=== PATIENT | male | born 1945 | race Caucasian/White ===

== ENCOUNTER 2016-05-19 11:08 | Emergency (ER) | payer OTHER, MEDICAID ==
[2016-05-19] MEDS ORDERED: IPRATROPIUM/ALBUTEROL 3 ML DEYVIAL ONE (11:23)
[2016-05-19] MEDS ORDERED: methylPREDNISolone SOD SUCC 125 MG/2 ML VIAL ONE (11:24)
[2016-05-19] MEDS ORDERED: methylPREDNISolone SOD SUCC 125 MG/2 ML VIAL IVP ONE (11:32)
[2016-05-19] MEDS ORDERED: NS 500 ML IV ONE (11:32)
[2016-05-19] MEDS ORDERED: RANITIDINE 50 MG/2 ML VIAL IV ONE (11:32)
[2016-05-19] MEDS ORDERED: IPRATROPIUM/ALBUTEROL 3 ML DEYVIAL IH ONE (11:34)
--- NOTE | 2016-05-19 11:56 | EDPHY ---
H & P Time Seen by Provider: 05/19/16 11:26 HPI/ROS: CHIEF COMPLAINT: " I think I have an allergic reaction" HISTORY OF PRESENT ILLNESS: Patient is a 70-year-old male who presents to the emergency department with diffuse rash and shortness of breath. The patient states that he developed diarrhea over the course of the night. He had mild abdominal cramping. He went to the dentist this morning to obtain his bridge. He did place is bridge with no difficulty. He had no medications or other procedures at the dentist's office. Upon returning home he felt his face become warm. He noticed a rash around his face and body. He has mild shortness of breath. No chest pain. REVIEW OF SYSTEMS: My complete review of systems is negative except as mentioned in the HPI. Past Medical/Surgical History: Includes gout, hypertension, diverticulitis Smoking Status: Former smoker Physical Exam: 134/86, 129, 14, 37.6, 97% on room air GENERAL: Well-appearing, in no acute distress, alert. HEENT: Eyes normal to inspection, normal pharynx, no signs of dehydration. NECK: No thyromegaly, no lymphadenopathy, supple. RESPIRATORY: Clear to auscultation bilaterally, no rales, rhonchi or wheezing. Of note, the nurse states he had mild wheezing on his arrival. She had treated him from triage with albuterol. CVS: Tachycardia with regular rhythm, no rubs, murmurs, or gallops. ABDOMEN: Soft, nontender, nondistended, no organomegaly. BACK: Normal to inspection, no CVA tenderness. SKIN: Normal color, warm, dry. No pallor. The patient has a diffuse erythematous rash. No petechiae. No papules. No significant hives. EXTREMITIES: No pedal edema, no calf tenderness, no Homans sign or cords, no joint swelling. NEURO/PSYCH: Alert and oriented x3, normal mood and affect, normal motor sensory exam. Constitutional: Initial Vital Signs Temperature (C) 37.6 C 05/19/16 11:11 Heart Rate 129 H 05/19/16 11:11 Respiratory Rate 14 05/19/16 11:11 Blood Pressure 134/86 H 05/19/16 11:11 O2 Sat (%) 97 05/19/16 11:11 O2 Delivery Mode Room Air Allergies/Adverse Reactions: No Known Allergies Allergy (Unverified 10/26/10 14:27) Home Medications: Medication Instructions Recorded ALLOPURINOL [Allopurinol 300 mg] 300 mg PO DAILY 05/30/10 ATENOLOL [Atenolol 50 mg] 50 mg PO 05/30/10 Aspirin [Aspirin 81mg] 81 mg PO DAILY 05/30/10 Cyclobenzaprine [Flexeril] 10 mg PO TID 05/30/10 Doxazosin Mesylate [Cardura] 3 mg PO DAILY 05/30/10 FLUTICASONE PROPIONATE [Flovent 0 gm IH 03/23/11 Hfa] Famotidine [Pepcid] 20 mg PO BID #10 tab 03/05/13 diphenhydrAMINE [Benadryl 50 MG 50 mg PO Q4-6PRN PRN #20 cap 03/05/13 (*)] predniSONE [prednisone 20mg (RX)] 60 mg PO DAILY #10 tab 03/05/13 Ciprofloxacin [Cipro] 500 mg PO BID #14 tab 05/19/16 metroNIDAZOLE [Flagyl 500 mg (*)] 500 mg PO BID #14 tab 05/19/16 Medical Decision Making ED Course/Re-evaluation: In the emergency department I met the patient soon after his arrival. He was sitting comfortably in the bed. Patient was given Solu-Medrol 125 mg IV, Zantac , Benadryl 50 mg IV and an albuterol neb. Patient was given normal saline 500 mL IV for hydration 1225: I rechecked the patient. He had no respiratory distress. Clear airway. Patient complains of mild left lower quadrant tenderness. No rebound or guarding. Clear breath sounds bilaterally. Because of the patient's mildly elevated temperature tachycardia chest x-ray was ordered. Chest x-ray: No acute disease or infiltrate noted. 155: I rechecked the patient. His rash had improved. He had no shortness of breath or airway swelling. He was continuing to complain of left lower quadrant discomfort. He has a history of diverticulosis. Because of this his laboratory findings a CT was ordered. I rechecked the patient upon return from CT imaging. He states his symptoms have resolved. Abdomen is soft, nontender nondistended. We are awaiting CT results. CT of the abdomen and pelvis: Please refer the dictated report by . He states the patient has some noted acute inflammation. There is mild wall thickening with trace fluid. The patient appears to have symptoms consistent with enteritis. Patient may have early diverticulitis but no abscess. I discussed the results with the patient. I answered all his questions. He continued to feel better. Abdomen was soft, nontender nondistended. He will be given Cipro and Flagyl orally. I discussed this with Dr. Wall from the [facility]. He will arrange close follow-up on Sunday. Patient felt comfortable with the plan. He was given warnings prior to leaving. Differential Diagnosis: My differential includes but is not limited to allergic reaction, reaction to his dental bridge, anaphylaxis, small-bowel obstruction, adhesions, diverticulitis, diverticulosis, enteritis - Data Points Laboratory Results: Laboratory Results 05/19/16 12:40 05/19/16 12:40 05/19/16 05/19/16 12:40 12:40 WBC 14.13 10^3/uL H 10^3/uL (3.80-9.50) RBC 5.74 10^6/uL 10^6/uL (4.40-6.38) Hgb 18.4 g/dL H g/dL (13.7-17.5) Hct 55.2 % H % (40.0-51.0) MCV 96.2 fL fL (81.5-99.8) MCH 32.1 pg pg (27.9-34.1) MCHC 33.3 g/dL g/dL (32.4-36.7) RDW 14.3 % % (11.5-15.2) Plt Count 129 10^3/uL L 10^3/uL (150-400) MPV 10.6 fL fL (8.7-11.7) Neut % (Auto) 77.1 % H % (39.3-74.2) Lymph % (Auto) 17.2 % % (15.0-45.0) Meade % (Auto) 3.9 % L % (4.5-13.0) Eos % (Auto) 1.1 % % (0.6-7.6) Baso % (Auto) 0.3 % % (0.3-1.7) Nucleat RBC Rel Count 0.0 % % (0.0-0.2) Absolute Neuts (auto) 10.90 10^3/uL H 10^3/uL (1.70-6.50) Absolute Lymphs (auto) 2.43 10^3/uL 10^3/uL (1.00-3.00) Absolute Monos (auto) 0.55 10^3/uL 10^3/uL (0.30-0.80) Absolute Eos (auto) 0.15 10^3/uL 10^3/uL (0.03-0.40) Absolute Basos (auto) 0.04 10^3/uL 10^3/uL (0.02-0.10) Absolute Nucleated RBC 0.00 10^3/uL 10^3/uL (0-0.01) Immature Gran % 0.4 % % (0.0-1.1) Immature Gran # 0.06 10^3/uL 10^3/uL (0.00-0.10) Sodium 145 mEq/L H mEq/L (134-144) Potassium 4.0 mEq/L mEq/L (3.5-5.2) Chloride 112 mEq/L H mEq/L (97-110) Carbon Dioxide 17 mEq/l L mEq/l (22-31) Anion Gap 16 mEq/L mEq/L (8-16) BUN 30 mg/dL H mg/dL (7-23) Creatinine 1.3 mg/dL mg/dL (0.7-1.3) Estimated GFR 55 Glucose 148 mg/dL H mg/dL (70-100) Calcium 8.9 mg/dL mg/dL (8.5-10.4) Total Bilirubin 0.7 mg/dL mg/dL (0.1-1.4) Conjugated Bilirubin 0.6 mg/dL H mg/dL (0.0-0.5) Unconjugated Bilirubin 0.1 mg/dL mg/dL (0.0-1.1) AST 31 IU/L IU/L (17-59) ALT 31 IU/L IU/L (21-72) Alkaline Phosphatase 62 IU/L IU/L (38-126) Total Protein 7.6 g/dL g/dL (6.3-8.2) Albumin 4.3 g/dL g/dL (3.5-5.0) Lipase 160.0 IU/L IU/L (23-300) Medications Given: Discontinued Medications Albuterol/Ipratropium (Duoneb) 3 ml IH EDNOW ONE Stop: 05/19/16 11:35 Last Admin: 05/19/16 12:13 Dose: 3 ml Diphenhydramine HCl (Benadryl Injection) 50 mg IVP EDNOW ONE Stop: 05/19/16 11:33 Last Admin: 05/19/16 11:43 Dose: 50 mg Sodium Chloride (Ns) 500 mls @ 0 mls/hr IV EDNOW ONE PRN Reason: Wide Open Stop: 05/19/16 11:33 Last Admin: 05/19/16 12:14 Dose: 500 mls Sodium Chloride (Ns) 1,000 mls @ 0 mls/hr IV ONCE ONE PRN Reason: Wide Open Stop: 05/19/16 13:50 Last Admin: 05/19/16 13:55 Dose: 1,000 mls Methylprednisolone Sodium Succinate (Solu-Medrol) 125 mg IVP EDNOW ONE Stop: 05/19/16 11:33 Last Admin: 05/19/16 12:14 Dose: 125 mg Ranitidine HCl (Zantac) 50 mg IV EDNOW ONE Stop: 05/19/16 11:33 Last Admin: 05/19/16 12:15 Dose: 50 mg Departure - Departure Disposition: Home, Routine, Self-Care Clinical Impression: Enteritis Allergic reaction Qualifiers: Encounter type: initial encounter Qualified Code(s): T78.40XA - Allergy, unspecified, initial encounter Diarrhea Qualifiers: Diarrhea type: unspecified type Qualified Code(s): R19.7 - Diarrhea, unspecified Condition: Good Instructions: Diverticulitis (ED), Enteritis (ED) Additional Instructions: Take your antibiotics as directed. Return with increasing pain, vomiting, diarrhea, fever or any other concerns. Referrals: Vijaya Hernandez [Primary Care Provider] - As per Instructions Prescriptions: Ciprofloxacin [Cipro] 500 mg PO BID #14 tab metroNIDAZOLE [Flagyl 500 mg (*)] 500 mg PO BID #14 tab
[2016-05-19 12:53] LABS: % IMMATURE GRANULYOCYTES 0.4 % (0.0-1.1); ABSOLUTE IMMATURE GRANULOCYTES 0.06 10^3/uL (0.00-0.10); ADD DIFF? NO; ADD MORPH? NO; ADD SCAN? NO; ATYPICAL LYMPHOCYTE FLAG 0 (0-99); FRAGMENT RBC FLAG 0 (0-99); HEMATOCRIT 55.2 % (40.0-51.0); HEMOGLOBIN 18.4 g/dL (13.7-17.5); LEFT SHIFT FLG 0 (0-99); LIPEMIA HEMOLYSIS FLAG 80 (0-99); MEAN CELL HEMOGLOBIN 32.1 pg (27.9-34.1); MEAN CELL HEMOGLOBIN CONCENTR. 33.3 g/dL (32.4-36.7); MEAN CELL VOLUME 96.2 fL (81.5-99.8); MEAN PLATELET VOLUME 10.6 fL (8.7-11.7); PLATELET CLUMPS FLAG 0 (0-99); PLATELET COUNT 129 10^3/uL (150-400); RED BLOOD CELL COUNT 5.74 10^6/uL (4.40-6.38); RED CELL DISTRIBUTION WIDTH 14.3 % (11.5-15.2)
[2016-05-19 13:23] LABS: ALANINE AMINOTRANSFERASE 31 IU/L (21-72); ALBUMIN 4.3 g/dL (3.5-5.0); ALKALINE PHOSPHATASE 62 IU/L (38-126); ANION GAP 16 mEq/L (8-16); ASPARTATE AMINOTRANSFERASE 31 IU/L (17-59); BILIRUBIN,TOTAL 0.7 mg/dL (0.1-1.4); BILIRUBIN-CONJUGATED 0.6 mg/dL (0.0-0.5); BILIRUBIN-UNCONJUGATED 0.1 mg/dL (0.0-1.1); CALCIUM 8.9 mg/dL (8.5-10.4); CARBON DIOXIDE 17 mEq/l (22-31); CHLORIDE 112 mEq/L (97-110); CREATININE 1.3 mg/dL (0.7-1.3); GLOMERULAR FILTRATION RATE 55; GLUCOSE 148 mg/dL (70-100); SODIUM 145 mEq/L (134-144); TOTAL PROTEIN 7.6 g/dL (6.3-8.2)
[2016-05-19] MEDS ORDERED: NS 1,000 ML IV ONE (13:49)
[2016-05-19] MEDS ORDERED: IOPAMIDOL (ISOVUE-300) 100 ML BTL IV ONE (14:00)
[2016-05-19 14:44] VITALS: RESP 16
[2016-05-19] MEDS ORDERED: metroNIDAZOLE 500 MG TAB PO ONE (15:22)
[2016-05-19] MEDS ORDERED: CIPROFLOXACIN 500 MG TAB PO ONE (15:23)
[2016-05-19 16:03] VITALS: BP 145/81; PULSE 81; TEMP 98.4; O2SAT 96
== END 2016-05-19 16:02 | disposition home or self-care (01) ==
DX: K52.9 Noninfective gastroenteritis and colitis, unspecified (principal); T78.40XA Allergy, unspecified, initial encounter; I10 Essential (primary) hypertension; Z79.82 Long term (current) use of aspirin; Z87.891 Personal history of nicotine dependence
CPT/HCPCS: 71020; 74177; 96361; 96374; 96375; 99285; J0171; J1200; J2780; Q9967

== ENCOUNTER → 2016-08-09 | Outpatient (CLI) | payer OTHER, MEDICAID ==
[~2016-08-09] MED LIST: GADOBUTROL 10 ML VIAL IVP ONE
[2016-08-09 14:27] LABS: GLOMERULAR FILTRATION RATE > 60
== END ==
LOC: FIMAGING 12:50
DX: J01.00 Acute maxillary sinusitis, unspecified (principal); J01.20 Acute ethmoidal sinusitis, unspecified; J01.30 Acute sphenoidal sinusitis, unspecified; R90.89 Other abnormal findings on diagnostic imaging of central nervous system; H53.483 Generalized contraction of visual field, bilateral
CPT/HCPCS: 70543; 70553; A9585

== ENCOUNTER → 2017-02-06 | Outpatient (CLI) | payer OTHER, MEDICAID | LOC: BMCIMAGING 08:46 | PROVIDERS: ATTEND Physician Assistant Medical | DX: K76.0 Fatty (change of) liver, not elsewhere classified (principal) ==

== ENCOUNTER → 2018-02-12 | Outpatient (CLI) | payer OTHER, MEDICAID | LOC: BMCIMAGING 11:14 | PROVIDERS: ATTEND Physician Assistant | DX: M19.071 Primary osteoarthritis, right ankle and foot (principal); M77.31 Calcaneal spur, right foot; M79.674 Pain in right toe(s) ==

== ENCOUNTER → 2018-06-26 | Outpatient (CLI) | payer OTHER, MEDICAID ==
[~2018-06-26] MED LIST changes: -GADOBUTROL 10 ML VIAL IVP ONE; +IOPAMIDOL (ISOVUE-300) 100 ML BTL ONE
== END ==
LOC: FIMAGING 10:27
PROVIDERS: ATTEND Internal Medicine Pulmonary Disease
DX: R91.8 Other nonspecific abnormal finding of lung field (principal); J42 Unspecified chronic bronchitis; I25.10 Atherosclerotic heart disease of native coronary artery without angina pectoris; I77.810 Thoracic aortic ectasia; M10.9 Gout, unspecified
CPT/HCPCS: 71260; Q9967; 82565-PO